=== PATIENT | female | born 1970 | race Caucasian/White ===

== ENCOUNTER 2016-03-30 13:39 | Emergency (ER) ==
[2016-03-30 13:48] VITALS: BP 122/79
--- NOTE | 2016-03-30 14:05 | PROVIDER DOCUMENTATION ---
HPI-Rash/Wound/ReCheck - General Chief Complaint: Suture/Staple Removal Stated Complaint: SUTURE/STAPLE REMOVAL Time Seen by Provider: 03/30/16 13:51 Source: patient, old records Allergies/Adverse Reactions: Allergies Allergy/AdvReac Type Severity Reaction Status Date / Time No Known Allergies Allergy Verified 03/30/16 13:48 Home Medications: Clonazepam [Klonopin] 1 mg PO HS 03/22/16 Gabapentin [Neurontin] 600 mg PO TID 03/22/16 Methadone 10 mg PO TID 03/22/16 Progesterone [Prometrium] 100 mg PO QHS 03/22/16 Tramadol [Ultram] 100 mg PO BID 03/22/16 - History of Present Illness-Dermatology Nature of Presenting Problem: Pt presents today for suture removal to the R hand. Wound is well healed. Location: reports: hands Onset/Duration: reports: 1 week ago Context/Associated Symptoms: reports: laceration - Recheck Treated days ago.: 8 Previous Treatment: laceration repair Antibiotics given: none Symptoms since procedure:: reports: no complaints Review of Systems - Adult - REVIEW OF SYSTEMS - ADULT Constitutional: reports: no symptoms reported Eyes: reports: no symptoms reported Ears, Nose, Mouth & Throat: reports: no symptoms reported Cardiovascular: reports: no symptoms reported Respiratory: reports: no symptoms reported Gastrointestinal: reports: no symptoms reported Genitourinary: reports: no symptoms reported Musculoskeletal: reports: no symptoms reported Integumentary: reports: see HPI Neurological: reports: no symptoms reported Psychiatric: reports: no symptoms reported Endocrine: reports: no symptoms reported Hematologic/Lymphatic: reports: no symptoms reported Allergic/Immunologic: reports: no symptoms reported All Other Systems: Reviewed and Negative Past History - Adult - PAST MEDICAL HISTORY-ADULT Review of Records: reports: Old Records Reviewed, Nursing Assessment Review, Medications Reviewed, Social history reviewed & non-contributory. Major Childhood Illnesses: reports: denies history Cardiovascular: reports: denies history Respiratory: reports: denies history Gastrointestinal: reports: denies history Obstetrical/Gynecological: reports: denies history Genitourinary: reports: denies history Musculoskeletal: reports: chronic pain, intervertebral disc disease, neck/back injury Neurological: reports: denies history Endocrine/Immune: reports: denies history Other Conditions: reports: denies history - FAMILY HISTORY Family History: reviewed, not pertinent Physical Exam-General - PHYSICAL EXAM-ADULT Initial Vital Signs Reviewed: Yes - CONSTITUTIONAL General Appearance: appears well, alert, no apparent distress - EYES Eyes: PERRL/EOMI, pink conjunctivae - HEAD, EARS, NOSE, MOUTH & THROAT HENMT: normocephalic/atraumatic, moist mucous membranes, normal ENT inspection - NECK Neck: non-tender, full range of motion, normal inspection - RESPIRATORY Respiratory: chest non-tender, lungs clear, normal breath sounds - CARDIOVASCULAR Cardiovascular: normal peripheral pulses, regular rate, rhythm, no edema - GASTROINTESTINAL (ABDOMEN) Abdominal Exam: normal bowel sounds, non tender, soft - LYMPHATIC Lymphatic: no adenopathy - MUSCULOSKELETAL Back Exam: normal inspection, no CVA tenderness, no vertebral tenderness Extremity: normal range of motion, non-tender, normal gait - SKIN Integumentary: normal turgor, warm/dry, laceration(s) - NEUROLOGIC Neurologic: grossly normal, no motor/sensory deficits - PSYCHIATRIC Psych/Mental Status: normal mood/affect, normal thought content, normal thought process, oriented x 3 Progress - PLAN OF CARE/RESULTS Progress/Plan/Lab Results: Vital Signs Temp Pulse Resp BP Pulse Ox 03/30/16 13:45 96.9 F L 82 18 122/79 99 No Known Allergies Allergy (Verified 03/30/16 13:48) Cephalexin [Keflex] 500 mg PO BID #14 capsule 03/22/16 Clonazepam [Klonopin] 1 mg PO HS 03/22/16 Gabapentin [Neurontin] 600 mg PO TID 03/22/16 Methadone 10 mg PO TID 03/22/16 Progesterone [Prometrium] 100 mg PO QHS 03/22/16 Tramadol [Ultram] 100 mg PO BID 03/22/16 Sutures removed. Well healed. Pt requested additional pain medication. I told her to f/u at her pain clinic as scheduled. Departure - Departure Time of Disposition Order: 14:04 DIAGNOSIS: Encounter for removal of sutures Disposition: HOME 01 Certified Medical Emergency: Urgent Condition: Good Additional Instructions: Keep clean and dry. ED Follow Up Instructions: You have been treated by a care provider in the Emergency Department. These instructions are being provided to you so you can have an understanding of how to care for yourself upon discharge. Upon discharge from the Emergency Department, you are responsible for making arrangements for follow-up care by a physician of your choice. Take all prescribed medications as directed. Return to the Emergency Department immediately for any new or worsening symptoms. You may call the Physician Referral phone number at [phone] to obtain a list of Physicians who are taking new patients. Attestation - Physician/ Mid-level Attestation Patient care was provided by Mid-level provider (ENGINEERING [employer]AC[employer]/PA):: Yes Mid-level provider:: Kaleb Acevedo Mid-level documentation review:: The Mid-level provider documentation, treatment plan and medical decision making was reviewed by the physician who agrees with all treatment and medical decision making by the MLP.
== END 2016-03-30 14:22 | disposition home or self-care (01) ==
LOC: P.ED 13:39
DX: S61.411D Laceration without foreign body of right hand, subsequent encounter (principal); G89.29 Other chronic pain; Z79.899 Other long term (current) drug therapy
CPT/HCPCS: 99282

== ENCOUNTER 2016-05-16 07:59 | Emergency (ER) ==
[2016-05-16 08:05] VITALS: BP 171/102
--- NOTE | 2016-05-16 09:24 | PROVIDER DOCUMENTATION ---
[facility]-EENT General - General Source: patient - History of Present Illness-EENT General EENT Location: reports: dental (left lower wisdom tooth) Quality of Pain: reports: sharp, stabbing Severity: reports: mild Onset/Duration: reports: 1 week ago Timing: reports: still present Prearrival Treatment: Initiated prescription meds Associated Symptoms: reports: denies symptoms Similar Symptoms Previously?: No Recently seen or treated by another doctor?: No - Throat/Dental Throat/Dental Problem Symptoms: reports: toothache, swelling of jaw/face Throat/Dental Problem Context: reports: dental decay Recently seen a dentist or have an appointment?: No - General Chief Complaint: Toothache Stated Complaint: dental abscess Time Seen by Provider: 05/16/16 09:03 Allergies/Adverse Reactions: Patient Allergies Allergy/AdvReac Type Severity Reaction Status Date / Time No Known Allergies Allergy Verified 05/16/16 08:19 Home Medications: Home Medication List Medication Instructions Recorded Confirmed Last Taken Type Cephalexin [Keflex] 500 mg PO BID #14 capsule 03/22/16 05/16/16 2 Days Ago Rx Clonazepam [Klonopin] 1 mg PO HS 03/22/16 05/16/16 1 Day Ago History Gabapentin [Neurontin] 600 mg PO TID 03/22/16 05/16/16 05/16/16 History Methadone 10 mg PO TID 03/22/16 05/16/16 05/16/16 History Tramadol [Ultram] 100 mg PO BID 03/22/16 05/16/16 1 Day Ago History Lisinopril [Zestril] 10 mg PO QAM PRN 05/16/16 05/16/16 3 Days Ago History - History of Present Illness-EENT General Nature of Presenting Problem: Pt is a 46 yof who came to the ED with a cc of left sided tooth pain. Pt reports she has a tooth abscess on her left lower wisdom tooth for one week now. Pt reports she hasn't seen a dentist but will go to one on Wednesday. ( Jaja Gomez) Review of Systems - Adult - REVIEW OF SYSTEMS - ADULT Constitutional: denies: chills, fatique, night sweats Eyes: denies: decreased vision, double vision Ears, Nose, Mouth & Throat: reports: mouth/dental pain (left wisdom tooth). denies: ear pain, sinus problem, hoarseness Cardiovascular: reports: no symptoms reported Respiratory: denies: cough, hemoptysis Gastrointestinal: reports: no symptoms reported Genitourinary: reports: no symptoms reported Musculoskeletal: reports: no symptoms reported Integumentary: reports: no symptoms reported Neurological: reports: no symptoms reported Psychiatric: reports: no symptoms reported Endocrine: reports: no symptoms reported Hematologic/Lymphatic: reports: no symptoms reported Allergic/Immunologic: reports: no symptoms reported All Other Systems: Reviewed and Negative Past History - Adult - PAST MEDICAL HISTORY-ADULT Review of Records: reports: Old Records Reviewed, Nursing Assessment Review Major Childhood Illnesses: reports: denies history Cardiovascular: reports: HTN Respiratory: reports: denies history Gastrointestinal: reports: denies history Obstetrical/Gynecological: reports: denies history Genitourinary: reports: denies history Musculoskeletal: reports: chronic pain, intervertebral disc disease, neck/back injury Neurological: reports: denies history Endocrine/Immune: reports: denies history Other Conditions: reports: denies history - PRIOR SURGERIES/PROCEDURES Surgical/Procedure History: reports: hysterectomy, tonsillectomy - IMMUNIZATION STATUS Childhood Immunizations: See Nurse Assessment Flu Vaccine: See Nurse Assessment - FAMILY HISTORY Family History: reviewed, not pertinent Physical Exam- EENT - Physical Exam EENT Initial Vital Signs Reviewed: Yes General Appearance: alert, no apparent distress Throat Exam: normal mouth inspection Mouth,Throat: 1 - tooth abscess Neck: non-tender Respiratory: chest non-tender, lungs clear, normal breath sounds Cardiovascular: normal peripheral pulses, regular rate, rhythm, no edema, no gallop, no JVD, no murmur Abdominal Exam: normal bowel sounds, non tender, soft Lymphatic: no adenopathy Back Exam: normal inspection, no CVA tenderness, no vertebral tenderness Extremity: normal range of motion Integumentary: normal color Neurologic: motion and time study teacher II-XII nml as tested, grossly normal Psych/Mental Status: normal mood/affect, normal thought content, normal thought process, oriented x 3 Progress - PLAN OF CARE/RESULTS Progress/Plan/Lab Results: Vital Signs - 24 hr 05/16/16 08:02 Temperature 97.7 F Pulse Rate 83 Respiratory 18 Rate Blood Pressure 171/102 O2 Sat by Pulse 100 Oximetry (Jaja Gomez) Departure - Departure Time of Disposition Order: 09:27 Certified Medical Emergency: Emergent - Departure DIAGNOSIS: Toothache Disposition: HOME 01 Condition: Stable Referrals: None,PCP [Primary Care Provider] - Attestation - Scribe Verification/Attestation Scribe:: Jaja Gomez Acting as Scribe for:: Geoffrey Morales Scribe documention review:: This chart was documented by a scribe and accurately reflects the service the provider performed and the decisions made by the provider. Physician Attestation
== END 2016-05-16 10:17 | disposition home or self-care (01) ==
LOC: ED 07:59
DX: K08.89 Other specified disorders of teeth and supporting structures (principal); K04.7 Periapical abscess without sinus; R22.0 Localized swelling, mass and lump, head; K02.9 Dental caries, unspecified; I10 Essential (primary) hypertension; G89.29 Other chronic pain; Z79.899 Other long term (current) drug therapy